=== PATIENT | male | born 1955 | race Two or more races ===

== ENCOUNTER 2021-10-28 11:18 | Inpatient (IN) | payer OTHER ==
[~2021-10-28] VITALS: Ht 182.9 cm; Wt 109.7 kg
[2021-10-28] MEDS ORDERED: SODIUM CHLORIDE 0.9% 2,000 ML IV ONE ×2 (13:00→17:30)
[2021-10-28 13:19] LABS: Basophils # (auto) 0.1 10 ^3/uL (0-0.2); Basophils % (auto) 0.4 % (0.0-2.0); Eosinophils # (auto) 0 10 ^3/uL (0-0.8); Hematocrit 42.1 % (41.0-53.0); Lymphocytes # (auto) 0.3 10 ^3/uL (0.4-5.4); Lymphocytes % (auto) 1.3 % (10.0-50.0); Mean Corpuscular Hemoglobin 30.2 pg (28.0-32.0); Mean Corpuscular Hgb Conc. 33.2 g/dL (32.0-36.0); Mean Corpuscular Volume 91.1 fL (80.0-100.0); Monocytes # (auto) 1.6 10 ^3/uL (0-1.3); Monocytes % (auto) 6.5 % (0.0-12.0); Neutrophils # (auto) 22.7 10 ^3/uL (1.6-8.6); Neutrophils % (auto) 91.8 % (37.0-80.0); Red Blood Cells 4.62 10^6/uL (4.5-5.90); White Blood Cell 24.7 10^3/uL (4.4-10.8)
[2021-10-28 13:56] LABS: Albumin 2.8 g/dL (3.4-5.0); Calcium 9.1 mg/dL (8.5-10.1)
[2021-10-28 13:59] LABS: BUN/Creatinine Ratio 18.2; Bilirubin, Total 1.2 mg/dL (0.2-1.0); Total Protein 7.8 g/dL (6.4-8.2)
[2021-10-28] MEDS ORDERED: HYDROcodone-ACET 5/325MG TAB PO ONE (16:00)
[2021-10-28] MEDS ORDERED: MORPHINE SULFATE 4 MG/ML SYR/VIAL IV ONE (16:00)
[2021-10-28] MEDS ORDERED: metroNIDAZOLE 500MG/100ML 100 ML IV ONE (16:00)
[2021-10-28] MEDS ORDERED: cefTRIAXone 1GM/50ML D5W 50 ML IV ONE (16:00)
[2021-10-28] MEDS ORDERED: MORPHINE SULFATE INJ 2 MG/ml SYRG IV PRN ×2 (18:00)
[2021-10-28] MEDS ORDERED: ONDANSETRON HCL 4 MG/2 ML VIAL IV PRN (18:00)
[2021-10-28] MEDS ORDERED: ACETAMINOPHEN 325 MG TAB PO PRN (18:00)
[2021-10-28] MEDS ORDERED: NITROGLYCERIN 0.4 MG SL TAB SL PRN (18:00)
[2021-10-28] MEDS ORDERED: DEXTROSE (50%) 50ML SYRG IV PRN (18:15)
[2021-10-28 19:03] LABS: BUN/Creatinine Ratio 23.1; Calcium 8.3 mg/dL (8.5-10.1); Potassium 3.9 mmol/L (3.5-5.1)
[2021-10-28] MEDS: PIPERACILLIN-TAZOB 3.375GM 100 ML IV SCH (19:23)
[2021-10-28 20:00] LABS: Urine Bacteria NONE SEEN /hpf (None Seen); Urine Blood Negative /uL (Negative); Urine Hyaline Cast FEW /lpf (0 - 2); Urine Mucus FEW (None Seen); Urine Specific Gravity 1.029 (1.001-1.035); Urine WBC 2 /hpf (0 - 3)
[2021-10-28] MEDS: SODIUM CHLORIDE 0.9% 1,000 ML IV SCH (20:55)
[2021-10-28] MEDS: DULoxetine HCL 30 MG CAP PO SCH (22:00)
[2021-10-28] MEDS: ATORVASTATIN 20 MG TAB PO SCH (22:18)
[2021-10-28] MEDS: PRAZOSIN HCL 1 MG CAP PO SCH (22:40)
[2021-10-29] VITALS (10 sets, daily range): BP systolic 108–127; BP diastolic 46–72
[2021-10-29] MEDS: InsuLIN REG 1unit/0.01ml Soln (100units/ml) SC SCH ×5 (00:54→23:20)
[2021-10-29] MEDS: PIPERACILLIN-TAZOB 3.375GM 100 ML IV SCH ×4 (01:01→17:28)
[2021-10-29] MEDS: ACCU-CHEK COMFORT CURVE STRIP VI SCH ×5 (07:00→23:22)
[2021-10-29] MEDS: SODIUM CHLORIDE 0.9% 1,000 ML IV SCH ×3 (07:39→19:00)
[2021-10-29 08:49] LABS: Albumin 2.2 g/dL (3.4-5.0); Calcium 7.7 mg/dL (8.5-10.1)
[2021-10-29 08:52] LABS: BUN/Creatinine Ratio 25.6; Bilirubin, Total 0.7 mg/dL (0.2-1.0); Total Protein 5.3 g/dL (6.4-8.2)
[2021-10-29 08:53] LABS: INR 1.17 (0.9-1.15); Partial Thromboplastin Time 30.8 sec (24.6-33.4)
[2021-10-29 09:46] LABS: Basophils # (auto) 0 10 ^3/uL (0-0.2); Basophils % (auto) 0.1 % (0.0-2.0); Eosinophils # (auto) 0 10 ^3/uL (0-0.8); Hematocrit 36.9 % (41.0-53.0); Hemoglobin 12.5 g/dL (13.5-17.5); Lymphocytes # (auto) 0.3 10 ^3/uL (0.4-5.4); Lymphocytes % (auto) 2.1 % (10.0-50.0); Mean Corpuscular Hgb Conc. 33.8 g/dL (32.0-36.0); Mean Corpuscular Volume 91.7 fL (80.0-100.0); Monocytes # (auto) 1.3 10 ^3/uL (0-1.3); Monocytes % (auto) 8.2 % (0.0-12.0); Neutrophils # (auto) 13.8 10 ^3/uL (1.6-8.6); Neutrophils % (auto) 89.6 % (37.0-80.0); Red Blood Cells 4.02 10^6/uL (4.5-5.90); Red Cell Distribution Width 14.1 % (11.8-14.3); White Blood Cell 15.4 10^3/uL (4.4-10.8)
[2021-10-29] MEDS ORDERED: fentaNYL CITRATE 100 MCG/2 ML VL ONE (13:20)
[2021-10-29] MEDS ORDERED: fentaNYL CITRATE 5 ML ONE (13:23)
[2021-10-29] MEDS ORDERED: PROPOFOL 10 MG/ML 20 ML IV ONE (13:26)
[2021-10-29] MEDS ORDERED: LIDOCAINE 2% (LOCAL ANESTH.) PF 5ml SDV ONE (13:26)
[2021-10-29] MEDS ORDERED: ONDANSETRON HCL 4 MG/2 ML VIAL ONE (13:26)
[2021-10-29] MEDS ORDERED: MIDAZOLAM HCL 2MG/2ML 2ml VIAL (1mg/ml) ONE (13:26)
[2021-10-29] MEDS ORDERED: ROCURONIUM 10MG/ML 10ML VIAL IV ONE (13:27)
[2021-10-29] MEDS ORDERED: HYDROmorphone HCL 2 MG/ML VL/or syr ONE (14:10)
[2021-10-29] MEDS ORDERED: LIDOCAINE 1%-Mpf/Epinephrine 1:200,000 ONE (14:13)
[2021-10-29] MEDS ORDERED: HYDROmorphone HCL 2 MG/ML VL/or syr IV PRN ×2 (14:45)
[2021-10-29] MEDS ORDERED: ONDANSETRON HCL 4 MG/2 ML VIAL IV PRN (14:45)
[2021-10-29] MEDS ORDERED: GLYCOPYRROLATE 0.2 MG/ML 1ML VIAL ONE (14:47)
[2021-10-29] MEDS ORDERED: NEOSTIGMINE 1 MG/ML INJ (10mg/10ML VIAL) ONE (14:47)
[2021-10-29] MEDS: PRAZOSIN HCL 1 MG CAP PO SCH (20:14)
[2021-10-29] MEDS: ATORVASTATIN 20 MG TAB PO SCH (20:14)
[2021-10-29] MEDS: DULoxetine HCL 30 MG CAP PO SCH (20:22)
[2021-10-30] VITALS (18 sets, daily range): BP systolic 104–132; BP diastolic 48–78
[2021-10-30] MEDS: PIPERACILLIN-TAZOB 3.375GM 100 ML IV SCH ×5 (00:37→23:53)
[2021-10-30 05:30] LABS: Basophils # (auto) 0 10 ^3/uL (0-0.2); Basophils % (auto) 0.3 % (0.0-2.0); Eosinophils # (auto) 0.1 10 ^3/uL (0-0.8); Eosinophils % (auto) 0.8 % (0.0-7.0); Hematocrit 35.4 % (41.0-53.0); Hemoglobin 11.9 g/dL (13.5-17.5); Lymphocytes # (auto) 0.8 10 ^3/uL (0.4-5.4); Lymphocytes % (auto) 6.7 % (10.0-50.0); Mean Corpuscular Hemoglobin 30.9 pg (28.0-32.0); Mean Corpuscular Hgb Conc. 33.7 g/dL (32.0-36.0); Mean Corpuscular Volume 91.6 fL (80.0-100.0); Monocytes # (auto) 1.2 10 ^3/uL (0-1.3); Monocytes % (auto) 10.5 % (0.0-12.0); Neutrophils # (auto) 9.5 10 ^3/uL (1.6-8.6); Neutrophils % (auto) 81.7 % (37.0-80.0); Red Blood Cells 3.87 10^6/uL (4.5-5.90); Red Cell Distribution Width 14.4 % (11.8-14.3); White Blood Cell 11.6 10^3/uL (4.4-10.8)
[2021-10-30] MEDS: ACCU-CHEK COMFORT CURVE STRIP VI SCH ×4 (05:39→22:44)
[2021-10-30] MEDS: InsuLIN REG 1unit/0.01ml Soln (100units/ml) SC SCH ×4 (05:39→22:51)
[2021-10-30] MEDS ORDERED: SEMA2INJ SC (09:57)
[2021-10-30] MEDS ORDERED: ASPI1TAB20 PO (09:57)
[2021-10-30] MEDS ORDERED: LOVA40TA72 PO (09:57)
[2021-10-30] MEDS ORDERED: GLIM4TAB42 PO (09:57)
[2021-10-30] MEDS ORDERED: METF-370 PO (09:57)
[2021-10-30] MEDS ORDERED: INSLANTI SC (09:57)
[2021-10-30] MEDS ORDERED: PRA1C PO (09:57)
[2021-10-30] MEDS ORDERED: DULO60CA PO (09:57)
[2021-10-30] MEDS: SODIUM CHLORIDE 0.9% 1,000 ML IV SCH ×3 (10:16→20:00)
[2021-10-30] MEDS: HYDROcodone-ACET 5/325MG TAB PO PRN ×2 (10:43→22:36)
[2021-10-30] MEDS ORDERED: METF-929 PO (14:19)
[2021-10-30] MEDS ORDERED: SEMA4INJ SC (14:19)
[2021-10-30] MEDS ORDERED: INSUINJ37 SC (14:19)
[2021-10-30] MEDS ORDERED: INSULIN LANTUS (GLARGINE) 1 /0.01ml (100units/ml) SC SCH (22:00)
[2021-10-30] MEDS: ATORVASTATIN 20 MG TAB PO SCH (22:32)
[2021-10-30] MEDS: PRAZOSIN HCL 1 MG CAP PO SCH (22:34)
[2021-10-30] MEDS: DULoxetine HCL 30 MG CAP PO SCH (22:37)
[2021-10-31 05:24] VITALS: BP 113/68
[2021-10-31] MEDS: PIPERACILLIN-TAZOB 3.375GM 100 ML IV SCH ×3 (05:41→18:00)
[2021-10-31] MEDS: SODIUM CHLORIDE 0.9% 1,000 ML IV SCH ×2 (05:42→12:40)
[2021-10-31] MEDS: InsuLIN REG 1unit/0.01ml Soln (100units/ml) SC SCH ×3 (06:00→18:00)
[2021-10-31] MEDS: ACCU-CHEK COMFORT CURVE STRIP VI SCH ×3 (06:17→18:00)
[2021-10-31 09:00] VITALS: BP 113/63
[2021-10-31] MEDS ORDERED: ONDA-144 PO (11:55)
[2021-10-31] MEDS ORDERED: HYDR-4902 PO (11:55)
[2021-10-31] MEDS ORDERED: DOCU-94 PO (11:55)
[2021-10-31] MEDS ORDERED: AMOX-277 PO (11:55)
[2021-10-31 13:00] VITALS: BP 119/69
[2021-10-31 17:00] VITALS: BP 123/83
[2021-10-31 17:03] VITALS: BP 119/68
[2021-10-31] MEDS ORDERED: SUCCINYLCHOLINE 20mg/ml 100mg/5ml SYRINGE IV ONE (17:59)
== END 2021-10-31 18:00 | disposition home health service (06) | DRG 418 ==
LOC: ER 11:18 → TELE 18:00 → DOU IN ICU 10-29 03:08 → TELE-WESTW 10-30 20:33
PROVIDERS: ADMIT Internal Medicine; ATTEND Internal Medicine
PROC: 0FT44ZZ Resection of Gallbladder, Percutaneous Endoscopic Approach (ICD-10-PCS; principal; 2021-10-29 13:27)
PROC: 5A09357 Assistance with Respiratory Ventilation, Less than 24 Consecutive Hours, Continuous Positive Airway Pressure (ICD-10-PCS; 2021-10-30)
DX: K80.00 Calculus of gallbladder with acute cholecystitis without obstruction (principal); E87.1 Hypo-osmolality and hyponatremia; N39.0 Urinary tract infection, site not specified; E87.2 Acidosis; K82.A1 Gangrene of gallbladder in cholecystitis; E88.09 Other disorders of plasma-protein metabolism, not elsewhere classified; E86.0 Dehydration; E66.9 Obesity, unspecified; Z20.822 Contact with and (suspected) exposure to COVID-19; R00.0 Tachycardia, unspecified; E11.65 Type 2 diabetes mellitus with hyperglycemia; E78.5 Hyperlipidemia, unspecified; I10 Essential (primary) hypertension; Z68.32 Body mass index [BMI] 32.0-32.9, adult; Z79.4 Long term (current) use of insulin
CPT/HCPCS: 36415; 36600; 71045; 74176; 76705; 80048; 80053; 81001; 82010; 82247; 82805; 82962; 83690; 83735; 83880; 83930; 84484; 85025; 85610; 85730; 86850; 86900; 86901; 87070; 87075; 87081; 87205; 93005; 94660; 96361; 96365; 96367; 96372; G0378; J0696; J1815; J2001; J2250; J2405; J2543; J2704; J3490